=== PATIENT | male | born 1955 | race Caucasian/White ===

== ENCOUNTER 2017-04-02 09:41 | Inpatient (IN) ==
[2017-04-02] MEDS ORDERED: VANCOMYCIN - PHARMACY CONSULT MC ONE (09:49)
--- NOTE | 2017-04-02 09:51 | Emergency Department Report ---
Abdominal Pain HPI - General Chief Complaint: Medical Emergency Stated Complaint: ecoli in blood Time Seen by Provider: 04/02/17 09:47 Source: patient, old records reviewed, other (Dr. Arce) Mode of arrival: ambulatory Limitations: no limitations - History of Present Illness HPI narrative: 61yo man presents to the ER for evaluation and admission. Pt was evaluated yesterday for fever and LLQ pain. Pt has a known h/o diverticulitis. Overnight, 3/4 blood culx returned gram pos rods. The on-call physician spoke with the hospitalist about admission. Hospitalist directed pt to the ER for admission. MD complaint: abdominal pain Onset (ago): hour(s) Consistency: constant Location: LLQ Severity: moderate Severity scale (1-10): 5 Quality: cramping, stabbing Migration to: no migration Relieving factors: nothing Exacerbating factors: eating, movement, other (palpation) Context: history of similar episodes Associated symptoms: diarrhea, fever, chills Treatments prior to arrival: NSAIDs - Related Data Home Medications Medication Instructions Recorded Confirmed Simvastatin [Zocor] 20 mg PO DAILY #0 04/03/11 04/02/17 Tamsulosin HCl [Flomax] 0.4 mg PO DAILY #0 11/10/12 04/02/17 Finasteride [Proscar] 5 mg PO DAILY 04/02/17 04/02/17 Fluticasone Nasal Davison [Flonase] 1 spray EA NOSTRIL DAILY PRN 04/02/17 04/02/17 Hydrocodone/APAP 7.5/325 [Corry 1 tab PO QID PRN 04/02/17 04/02/17 7.5/325] Methocarbamol [Robaxin] 500 mg PO BID PRN 04/02/17 04/02/17 dilTIAZem HCl [Diltiazem 24Hr Cd] 120 mg PO DAILY 04/02/17 04/02/17 Allergies Allergy/AdvReac Type Severity Reaction Status Date / Time cefaclor Allergy Unknown ANAPHYLACTIC Verified 04/02/17 09:46 SHOCK Penicillins Allergy Unknown RASH Verified 04/02/17 09:46 polyethylene glycol 3350 Allergy Unknown Verified 04/02/17 09:53 [From Miralax] Review of Systems All systems: reviewed and negative except as stated Constitutional: Reports: as per HPI, fever, chills Gastrointestinal: Reports: as per HPI, abdominal pain PFSH Medical History Updates: diverticulitis Physical Exam - Limitations Limitations: no limitations - General General appearance: alert, in no apparent distress - Normal Exams: Head:: Normocephalic without trauma Eyes:: Pupils are PERRLA w/ EOMI, No scleral icterus, irritation, or foreign bodies noted ENMT:: No facial trauma, nasal exudates, pharyngeal erythema, or exudates are noted Neck:: Full range of motion, without adenopathy Chest/Respirations:: Clear all rausch, with good airflow, and symmetry bilaterally Cardiovascular:: Regular rate and rhythm, without murmur or gallop, Pulses 2+ all extremities, capillary refill, <2 seconds all extremities Lymphatic:: No lymphadenopathy Musculoskeletal:: No tenderness, or deformity noted Integumentary:: No rashes, hives, or bruising noted Neurological:: Patient is alert, and oriented Psychiatric:: Patient exhibits, appropriate attention - Abdominal Exam Abdominal exam: Present: soft, tenderness, rebound, normal bowel sounds, Rovsing 's sign. Absent: distention, guarding, rigidity, psoas sign, obturator sign, heel tap sign, Najera's sign, tenderness at McBurney's Point, hernia Abdominal tenderness: Present: LLQ Course - Consultations Consultation #1: Hospitalist: Deferred direct admission to eval in the ER based on pts not having been seen/evaluated today. Will admit for treatment of diverticulitis/ bacteremia. Time: 10:55 Vital Signs Temperature 97.8 F 04/02/17 09:46 Pulse Rate 98 04/02/17 09:46 Respiratory Rate 19 04/02/17 09:46 Blood Pressure 86/53 04/02/17 09:46 Pulse Oximetry 99 04/02/17 09:46 Temperature 97.8 F 04/02/17 09:46 Pulse Rate 98 04/02/17 09:46 Respiratory Rate 19 04/02/17 09:46 Blood Pressure 86/53 04/02/17 09:46 Pulse Oximetry 99 04/02/17 09:46 Abdominal Pain - MDM Narrative Medical decision making narrative: 61yo man with presumptive recurrence of diverticulitis and bacteremia. Initial treatment started for pts bacteremia. Will contact hospitalist for admission. - Differential Diagnosis Differential diagnosis: Likely: abdominal pain, acute appendicitis, constipation , diverticulitis, gastroenteritis, small bowel obstruction - Medical Records Attestation: I reviewed the patient's medical records. - Lab Data Attestation: I reviewed the patient's lab results. Result diagrams: 04/02/17 10:02 04/02/17 10:02 - Radiology Data Attestation: I reviewed the patient's radiology results. CXR: Findings: The lungs are stable in appearance without new focal airspace consolidation. There is no pleural effusion or pneumothorax. The heart size, pulmonary vascularity and mediastinal contours are unchanged. New thoracic epidural spinal stimulator lead. Old deformity of the right distal clavicle. Degenerative change in the AC joints and spine. IMPRESSION: Stable appearance of the chest without acute cardiopulmonary disease. CT Abd/pelv: Findings: The lung bases are clear. The liver is stable without enhancing mass or bile duct dilatation. The gallbladder is unremarkable. The spleen, pancreas and adrenal glands are within normal limits. Kidneys appear stable. No hydronephrosis. No abdominal or pelvic lymphadenopathy. Bladder is grossly normal. Prostate and rectum are normal. No free fluid. There is new inflammation in the distal descending colon. No extraluminal gas or rim-enhancing abscess appreciated. No evidence of a bowel obstruction. The appendix is normal. Bone windows show no acute findings. Impression: Distal descending colonic diverticulitis. No evidence of perforation or abscess at this time. - EKG Data EKG #1 EKG attestation: Yes: I reviewed and interpreted this EKG. EKG shows normal: sinus rhythm, axis, intervals, QRS complexes, ST-T waves Rate: normal Disposition Clinical Impression: Bacteremia Diverticulitis Qualifiers: Diverticulitis site: large intestine Diverticulitis bleeding: unspecified bleeding status Diverticulitis complication: unspecified complication status Qualified Code(s): K57.32 - Diverticulitis of large intestine without perforation or abscess without bleeding Disposition: 02 To [facility] [place] Care Print Language: Indonesian Prescriptions: No Action Simvastatin [Zocor] 20 mg PO DAILY #0 dilTIAZem HCl [Diltiazem 24Hr Cd] 120 mg PO DAILY Finasteride [Proscar] 5 mg PO DAILY Tamsulosin HCl [Flomax] 0.4 mg PO DAILY #0 Fluticasone Nasal Davison [Flonase] 1 spray EA NOSTRIL DAILY PRN PRN Reason: Prn Orders Hydrocodone/APAP 7.5/325 [Corry 7.5/325] 1 tab PO QID PRN PRN Reason: Pain Methocarbamol [Robaxin] 500 mg PO BID PRN PRN Reason: Prn Orders Referrals: Paxton Dykes MD [Family Provider] - Time of Disposition: 11:19 - Seen By: physician
[2017-04-02] MEDS: LR 1,000 ML IV SCH ×4 (10:10→13:02)
[2017-04-02] MEDS: SALINE FLUSH 10ml SYRINGE IVF PRN ×2 (10:10→13:05)
[2017-04-02] MEDS ORDERED: IOHEXOL 300mg/ml 100ml INJECTION ONE (10:35)
[2017-04-02] MEDS ORDERED: SALINE FLUSH 10ml SYRINGE ONE (10:36)
[2017-04-02] MEDS ORDERED: NS 100 ML ONE (10:36)
--- NOTE | 2017-04-02 11:01 | XRay Report ---
Indication: Sepsis PROCEDURE: XR chest 1V: Encounter: Initial Comparison: January 15, 2016 Findings: The lungs are stable in appearance without new focal airspace consolidation. There is no pleural effusion or pneumothorax. The heart size, pulmonary vascularity and mediastinal contours are unchanged. New thoracic epidural spinal stimulator lead. Old deformity of the right distal clavicle. Degenerative change in the AC joints and spine. IMPRESSION: Stable appearance of the chest without acute cardiopulmonary disease. .
--- NOTE | 2017-04-02 11:06 | CT Scan Report ---
Indication: Abd pain; bacteremia; h/o diverticulitis PROCEDURE: CT abdomen pelvis w con: Encounter: Initial Comparison: CT abdomen dated January 07, 2017 Technique: Axial CT images were performed through the abdomen and pelvis after the administration of intravenous contrast. Coronal and sagittal two-dimensional reformats. Automated Exposure Control and Iterative Reconstruction dose reducing techniques were utilized. Contrast: Omnipaque 300 100 mL Findings: The lung bases are clear. The liver is stable without enhancing mass or bile duct dilatation. The gallbladder is unremarkable. The spleen, pancreas and adrenal glands are within normal limits. Kidneys appear stable. No hydronephrosis. No abdominal or pelvic lymphadenopathy. Bladder is grossly normal. Prostate and rectum are normal. No free fluid. There is new inflammation in the distal descending colon. No extraluminal gas or rim-enhancing abscess appreciated. No evidence of a bowel obstruction. The appendix is normal. Bone windows show no acute findings. Impression: Distal descending colonic diverticulitis. No evidence of perforation or abscess at this time. .
[2017-04-02] MEDS ORDERED: NS 1,000 ML IV ONE (11:14)
[2017-04-02 12:09] VITALS: BMI 25.9
[2017-04-02] MEDS ORDERED: INFLUENZA VAC QIV 2017-18 (Fluarix*)(>=3yo) 0.5ml IM ONE (12:17)
[2017-04-02] MEDS ORDERED: INFLUENZA VAC. INJ. ADMIN CHARGE INJ ONE (12:26)
[2017-04-02] MEDS ORDERED: NS 1,000 ML IV SCH (13:00)
[2017-04-02] MEDS: NS with KCL 20 mEq 1,000 ML IV SCH ×2 (13:04→22:46)
--- NOTE | 2017-04-02 13:25 | Pharmacy Consult-Antibiotics ---
Pharmacy Consult-Vancomycin - Laboratory Information WBC 8.2 T/MM3 (4.5-11.0) 04/02/17 10:02 BUN 16.0 MG/DL (9-20) 04/02/17 10:02 Creatinine 1.0 MG/DL (0.8-1.5) D 04/02/17 10:02 MONTEZ is a 61yo man, who presents to the ER for evaluation and admission. Pt was evaluated yesterday for fever and LLQ pain. Pt has a known h/o diverticulitis. Overnight, 3/4 blood cultures returned with gram pos rods. He was admitted with presumptive recurrence of diverticulitis and bacteremia. Initial treatment started for pts bacteremia in ED with Vancomycin. . S Cr = 1.0 mg/cL Cr Cl = 79 mL/min Temp = 97.7 degrees F WBC's = 8.2 T/mm3 Lactate = 1.2 The patient was given Vancomycin 2,000 mg @ 1015 in the ED. Based on information from the Vancomycin Pharmacokinetic Program I will continue the Vancomycin @ 1,250 mg iv every 12 hours starting at 2200 this evening. The estimated trough should be around 16.4 mcg/mL. The pharmacy will continue monitor the vancomycin and adjust accordingly. Thanks for the protocol, Tate Palomares, Pharmacist
--- NOTE | 2017-04-02 13:47 | History & Physical Report ---
<Elisha Cummins - Last Filed: 04/02/17 13:37> History of Present Illness Date: 04/02/17 Chief complaint: LLQ abdominal pain HPI: Kaden Portillo (Mike) is a very pleasant 61-year-old male who presented to [facility] emergency department at the suggestion of his PCP, Dr. Dykes, for evaluation of left lower quadrant abdominal pain. His , Mila, is present on exam and contributes to the history. He reports that on 03/29/17, he started to have lower back pain which he states was initially similar to is chronic back pain. On Thursday, 04/01, he started to have chills in addition to his back pain which had moved to his left lower quadrant. He was unable to get an appointment with his PCP, Dr. Dykes, but was able to be seen by Dr. Blackwell in the clinic. He was noted to be febrile in clinic with a temperature of 100.8. Exam revealed severe left lower quadrant pain with palpation, suspicious for diverticulitis. He admits to a history of diverticular disease with an episode of diverticulitis in 2012 which presented with similar symptoms. While in the clinic, labs and blood cultures were obtained and revealed WBC 9.3 with 92% neutrophils and 2% bands. He was also noted to have hypokalemia with potassium of 3.2 and UA was unremarkable. Treatment with Levaquin and KCl were initiated and he was discharged home. This morning, the hospitalist service was contacted regarding positive blood cultures on Mr. Portillo , revealing E. coli. Mr. Portillo was then contacted and directed to the emergency room for further evaluation and admission. Upon arrival to the ED, he was hypotensive with a blood pressure of 86/53 and tachycardic with heart rate of 98. Labs were obtained and revealed WBC of 8.2 with 85% neutrophils and 5% bands. BMP was unremarkable with resolution of previous hypokalemia noted in clinic on 04/01. CT abdomen/pelvis with contrast was obtained and revealed distal descending colonic diverticulitis without evidence of perforation or abscess. CXR was also obtained and showed stable appearance of chest without acute cardiopulmonary disease. Additional blood cultures were obtained in the ED. Mr. Portillo admits to taking his levaquin this morning around 0700 in addition to his home medications. While in the ED, he received vancomycin for additional antimicrobial coverage as well as 1 liter of normal saline and 1 liter of lactated ringers. His hypotension improved with the fluid resuscitation. In light of his acute diverticulitis with bacteremia and sepsis as indicated by his tachycardia and hypotension with MAP of 64, Dr. Rangel was contacted and he was admitted into inpatient status for further evaluation, close monitoring for deterioration, IV hydration and IV antibiotics. His length of stay is expected to exceed 2 over nights. On exam, he is seen while resting in bed, on his right side, with his at the bedside. He denies any chest pain, shortness of breath, nausea, vomiting or dysuria. He admits to recent chills and fever as well as constipation. He recently started doing the keto-diet as he was concerned about being prediabetic with his recent A1c at 6.1. Since changing his diet, he has become more constipated as he does not eat much fiber, fruits or vegetables. His last bowel movement was on 03/30. He denies any blood in his stools and no dark, tarry stools. Review of Systems All systems PM: 10-point ROS was reviewed, no additional remarkable complaints except - Constitutional Constitutional: Present: chills, fever(s) - EENMT Eyes: Absent: blurry vision, change in vision, photophobia Balance: Absent: falling to one side Nose: Absent: nosebleeds Mouth/Throat: Present: dry mouth. Absent: sore throat, changes in swallowing - Cardiovascular Cardiovascular: Absent: chest pain, palpitations, syncope, dyspnea on exertion, orthopnea, edema Vascular: Absent: pedal edema - Respiratory Respiratory: Absent: cough, dyspnea, hemoptysis, dyspnea on exertion, wheezing - Gastrointestinal Gastrointestinal: Present: abdominal pain (LLQ), change in bowel habits, constipation. Absent: hematochezia, melena, nausea, vomiting - Genitourinary Genitourinary: Absent: dysuria, hematuria - Musculoskeletal Musculoskeletal: Present: as per HPI, back pain. Absent: deformity - Integumentary/Breasts Integumentary: Absent: rash, jaundice - Neurological Neurological: Absent: confusion, dizziness - Psychiatric Psychiatric: Absent: anxiety, depression - Endocrine Endocrine: Absent: palpitations - Hematologic/Lymphatic Hematologic/Lymphatic: Absent: easy bruising - Allergic/Immunologic Allergic/Immunologic: Present: seasonal rhinorrhea [facility] Patient Stated Medical History GERD. Diverticulosis with history of diverticulitis-2014, 2012. Hypertension. Hypercholesterolemia. Chronic back pain. BPH. Osteoarthritis. 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 Remote history of asthma. Seasonal rhinitis. Surgical History: Back stimulator placement-2015. EGD-2015. Colonscopy-2012. Fexible sigmoidoscopy-2012. Umbilical hernia repair-2010. Sinus surgery-2010. [place] laminectomy-2007. Uvulectomy-2005. Tonsillectomy-2005. Left spermatocele-2003. Right knee arthroplasty-1998. Left carpal tunnel release. Family History: Mother- age 82, breast cancer, CAD, hyperlipidemia, hypertension, arrhythmia. Father- age 78, COPD, sepsis secondary to rectal fistula. 2 sisters and a brother, all living and reportedly healthy. 3 living sons, all alive and reportedly healthy. 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 Dykes. Currently lives with his , Mila, whom he has been to for 37 years. Medications Home Medications Medication Instructions Recorded Confirmed Type Simvastatin [Zocor] 20 mg PO DAILY #0 04/03/11 04/02/17 History Tamsulosin HCl [Flomax] 0.4 mg PO DAILY #0 11/10/12 04/02/17 History Finasteride [Proscar] 5 mg PO DAILY 04/02/17 04/02/17 History Fluticasone Nasal Maribel [Flonase] 1 spray EA NOSTRIL DAILY PRN 04/02/17 History Hydrocodone/APAP 7.5/325 [[place] 1 tab PO QID PRN 04/02/17 04/02/17 History 7.5/325] Methocarbamol [Robaxin] 500 mg PO BID PRN 04/02/17 04/02/17 History dilTIAZem HCl [Diltiazem 24Hr Cd] 120 mg PO DAILY 04/02/17 04/02/17 History levoFLOXacin [Levaquin] 500 mg PO ACB 04/02/17 04/02/17 History Allergies Allergy/AdvReac Type Severity Reaction Status Date / Time cefaclor Allergy Unknown ANAPHYLACTIC Verified 04/02/17 09:46 SHOCK Penicillins Allergy Unknown RASH Verified 04/02/17 09:46 polyethylene glycol 3350 Allergy Unknown Verified 04/02/17 09:53 [From Miralax] Exam Vital Signs: Temperature 97.8 F 04/02/17 11:52 Pulse Rate 66 04/02/17 11:52 Respiratory Rate 16 04/02/17 11:52 Blood Pressure 110/67 04/02/17 11:52 Pulse Oximetry 100 04/02/17 11:52 Telemetry Rhythm: Sinus Rhythm Height/Weight/BMI: Height 5 ft 9 in Weight 175 lb 7.807 oz Body Mass Index 25.9 - Constitutional Present: no acute distress, well nourished, well developed, cooperative - Routine HEENT Exam Head: Present: normocephalic, atraumatic Eye: Present: PERRL. Absent: conjunctival icterus ENT: Present: mucous membranes moist, dentition normal - Routine Neck Exam Present: supple, full ROM, trachea midline - Routine Chest/Breast/Axilla Exam Chest wall: Absent: pacemaker - Routine Respiratory Exam Present: CTA bilaterally. Absent: stridor, wheezes, crackles - Routine Cardiovascular Exam Present: RRR, S1, S2 - Routine Abdominal Exam Present: soft, tenderness (LLQ), distended, guarding (voluntary-LLQ.) - Routine Extremities Exam Present: no edema, full ROM, pulses intact - Routine Back/Spine/Pelvis Exam Back/Spine: Present: full ROM - Routine Skin Exam Present: intact, dry, warm Comments: afebrile. - Routine Neurological Exam Present: alert, oriented X3, moving all extremities, hearing grossly intact, normal speech - Routine Psychiatric Exam Present: normal affect, cooperative, good insight, good judgment Results - Labs CBC & Chem 7: 04/02/17 10:02 04/02/17 10:02 Microbiology Results: Preliminary blood culture obtained 04/01/17 - positive for E. Coli. - Imaging and Cardiology CT scan - abdomen Status: image reviewed by me Additional comments: Date of Exam: 04/02/17 Type of Exam(s): CT abdomen pelvis w con Findings: The lung bases are clear. The liver is stable without enhancing mass or bile duct dilatation. The gallbladder is unremarkable. The spleen, pancreas and adrenal glands are within normal limits. Kidneys appear stable. No hydronephrosis. No abdominal or pelvic lymphadenopathy. Bladder is grossly normal. Prostate and rectum are normal. No free fluid. There is new inflammation in the distal descending colon. No extraluminal gas or rim-enhancing abscess appreciated. No evidence of a bowel obstruction. The appendix is normal. Bone windows show no acute findings. Impression: Distal descending colonic diverticulitis. No evidence of perforation or abscess at this time. Chest x-ray Status: image reviewed by me Additional comments: Date of Exam: 04/02/17 Findings: The lungs are stable in appearance without new focal airspace consolidation. There is no pleural effusion or pneumothorax. The heart size, pulmonary vascularity and mediastinal contours are unchanged. New thoracic epidural spinal stimulator lead. Old deformity of the right distal clavicle. Degenerative change in the AC joints and spine. IMPRESSION: Stable appearance of the chest without acute cardiopulmonary disease. Assessment and Plan (1) Bacteremia Current visit: Yes Status: Acute Blood culture obtained on 04/01/17 was positive for E. coli. (2) Diverticulitis Current visit: Yes Status: Acute (3) Sepsis Current visit: Yes Status: Acute present on admission, secondary to diverticulitis, as indicated by tachycardia ( HR 98) and hypotension (BP 86/53) with MAP of 64. DVT Prophylaxis: SCD's Resuscitation Status: Full Code Assessment and Plan: 61-year-old male with 4 day history of lower back and LLQ abdominal pain with fevers and chills presented to ED on 04/02/17 and found to have diverticulitis per CT abdomen/pelvis. Seen by Dr. Blackwell in clinic on 04/01 and started on Levaquin for suspected diverticulitis and found to have positive blood culture for E.coli at that time. Assessment Sepsis and bacteria secondary to diverticulitis, acute. Hypertension, chronic. Hypercholesterolemia, chronic. Chronic back pain. GERD, chronic. Diverticulosis with history of diverticulitis-2014, 2012. BPH, chronic. 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 Seasonal rhinitis, chronic. Plan-04/02/17 (Admission) Admit to inpatient status under the care of Dr. Rangel. Patient was started on Levaquin as outpatient on 04/01/17 for suspected diverticulitis. Will continue Levaquin 750mg IV daily for antimicrobial coverage of suspected GI pathogens. Patient was given Vancomycin x 1 dose in ED for additional empiric coverage, which will not be continued at this time. Additional blood cultures were obtained in ED-awaiting results. Initial blood culture from 04/01 obtained in clinic revealed E. coli. Patient has a history of diverticulitis in 2012 and 2014. May consider surgical consult for further evaluation. Patient has a history of hypertension and was found to be hypotensive in ED with blood pressure 86/53. Improvement with fluid resuscitation. Continue to monitor blood pressure closely. Continue home diltiazem in AM with parameters. Monitor cardiac function closely on telemetry. Continue NS with KCl at 125cc/ hr for hydration and potassium supplementation given recent hypokalemia noted in PCP office (K 3.2 on 04/01/17). Will monitor electrolytes and renal function with repeat BMP in AM. Will recheck CBC in AM to monitor blood counts. lactate on admission was 1.2. Will recheck at 1800. If elevated, recommend recheck in AM. Continue home [place] and Robaxin for chronic back pain. Will provide Morphine as needed for additional pain control as well as Zofran for nausea/vomiting. Full liquid diet as tolerated. Bowel motivation with Senna plus. Prior medical records, nursing notes and home medications were reviewed. Tylenol as needed for pain and fever. Treatment plan discussed with Dr. Rangel and nursing. - Time spent with patient Time with patient PN: 70 minutes Sepsis Assessment - Evaluation Possible source: GI tract/intra-abdominal Confirmed Suspected Infection: Yes SIRS Criteria: pulse > or equal to 90 beats/minute Severe Sepsis: MAP <65 Hospital Course Summary Disclaimer: The visit summary below is not to be considered part of the above Progress Note. Hospital Course: 04/02/17 14:43 Assessment Sepsis and bacteria secondary to diverticulitis, acute. Hypertension, chronic. Hypercholesterolemia, chronic. Chronic back pain. GERD, chronic. Diverticulosis with history of diverticulitis-2012. BPH, chronic. 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 Seasonal rhinitis, chronic. Plan-04/02/17 (Admission) Admit to inpatient status under the care of Dr. Rangle. Patient was started on Levaquin as outpatient on 04/01/17 for suspected diverticulitis. Will continue Levaquin 750mg IV daily for antimicrobial coverage of suspected GI pathogens. Patient was given Vancomycin x 1 dose in ED for additional empiric coverage, which will not be continued at this time. Additional blood cultures were obtained in ED-awaiting results. Initial blood culture from 04/01 obtained in clinic revealed E. coli. Patient has a history of diverticulitis in 2012 and 2014. May consider surgical consult for further evaluation. Patient has a history of hypertension and was found to be hypotensive in ED with blood pressure 86/53. Improvement with fluid resuscitation. Continue to monitor blood pressure closely. Continue home diltiazem in AM with parameters. Monitor cardiac function closely on telemetry. Continue NS with KCl at 125cc/ hr for hydration and potassium supplementation given recent hypokalemia noted in PCP office (K 3.2 on 04/01/17). Will monitor electrolytes and renal function with repeat BMP in AM. Will recheck CBC in AM to monitor blood counts. lactate on admission was 1.2. Will recheck at 1800. If elevated, recommend recheck in AM. Continue home [place] and Robaxin for chronic back pain. Will provide Morphine as needed for additional pain control as well as Zofran for nausea/vomiting. Full liquid diet as tolerated. Bowel motivation with Senna plus. Prior medical records, nursing notes and home medications were reviewed. Tylenol as needed for pain and fever. Treatment plan discussed with Dr. Rangel and nursing. <Lacy Rangel - Last Filed: 04/02/17 17:06> History of Present Illness Date: 04/02/17 [facility] Patient Stated Medical History Other HEENT Yes: wears glasses Hypertension Yes Other GI Yes: diverticulitis Hx Benign Prostatic Yes Hyperplasia MRSA Yes: FROM SINUS SURGERY 2009 Exam Vital Signs: Temperature 97.8 F 04/02/17 11:52 Pulse Rate 66 04/02/17 11:52 Respiratory Rate 16 04/02/17 11:52 Blood Pressure 110/67 04/02/17 11:52 Pulse Oximetry 100 04/02/17 11:52 Height/Weight/BMI: Height 1.75 m Weight 79.6 kg Body Mass Index 25.9 Results - Labs CBC & Chem 7: 04/02/17 10:02 04/02/17 10:02 Assessment and Plan (1) Bacteremia Current visit: Yes Status: Acute (2) Diverticulitis Current visit: Yes Status: Acute (3) Sepsis Current visit: Yes Status: Acute Assessment and Plan: 04/02/2017-I reviewed this chart, the patient history, and the [facility] LPN's/PA's documented findings as above. We discussed and formulated the assessment and plan as above with the additions below.-Dr. Rangel The patient states that he starting to feel better. He continues to have left lower quadrant abdominal pain, but states that is improving. He states that his symptoms started 5 days ago initially with low back pain and "just not feeling well". He denies any chest pain, shortness of breath or cough. Appetite is decreased. He states that he started on a new diet and has been constipated off and on since that time, occasionally requiring manual disimpaction including last week. He states that he has lost 20 pounds and stopped taking his diltiazem. He states he did monitor his blood pressure and it was usually in the 120s over 70s. He states yesterday when he didn't feel well he thought it might be because of high blood pressure and so he restarted his diltiazem yesterday after being off of it for several weeks. Last night and this morning the patient states he was feeling lightheaded and weak as well as having feverishness and abdominal pain. He states after receiving IV fluids he no longer feels lightheaded. He does request something to eat and drink and states he is hungry. On exam he is alert and oriented and in no acute distress. Chest is clear to auscultation. Cardiac vascular reveals a regular rate and rhythm. Abdomen is soft and mildly tender throughout but more so in the left lower quadrant. Bowel sounds are present. He states he is passing some flatus. Extremities are free of edema. Skin is warm and dry and without rashes. Back exam reveals a nerve stimulator in the left low back. There is no surrounding erythema or edema but the patient states it is a little tender to palpation. I did review the CT and agree with radiology report showing distal descending colonic diverticulitis. No evidence of perforation or abscess at this time. Impression and plan Regarding diverticulitis with Escherichia coli bacteremia, agree with IV Levaquin. He did take oral Levaquin this morning. Blood cultures were repeated today and will await results. Regarding hypotension and sepsis, continue IV fluids. Regarding history of hypertension, the patient states he stops taking his diltiazem several weeks ago and only restarted taking it yesterday. He states he quit taking it when he lost 20 pounds. We'll monitor off of diltiazem at this time. Tender Nerve stimulator in back-monitor Repeat lab tomorrow Regarding constipation, recommend treatment and avoidance of constipation to help with his diverticulosis. Hospital Course Summary Disclaimer: The visit summary below is not to be considered part of the above Progress Note.
[2017-04-02] MEDS ORDERED: FLUTICASONE NASAL SPRAY 50mcg EA NOSTRIL PRN (14:25)
[2017-04-02] MEDS ORDERED: METHOCARBAMOL 500 MG TABLET PO PRN (14:25)
[2017-04-02] MEDS ORDERED: MORPHINE SULFATE 2mg INJECTION IVP PRN (14:39)
[2017-04-02] MEDS ORDERED: ONDANSETRON 4 MG/2 ML INJECTION IVP PRN (14:40)
[2017-04-02] MEDS ORDERED: LEVOFLOXACIN PB 750 MG/150 ML BAG IV SCH (14:45)
[2017-04-02] MEDS: ACETAMINOPHEN 500 MG TABLET PO PRN (18:12)
[2017-04-02] MEDS: HYDROCODONE/APAP 7.5 MG/325 MG TABLET PO PRN (19:08)
[2017-04-02] MEDS: NS 1,000 ML IV SCH ×2 (20:36→23:03)
[2017-04-02] MEDS: SENNA + DOCUSATE TABLET PO SCH (22:26)
[2017-04-02] MEDS: SIMVASTATIN 20 MG TABLET PO SCH (22:26)
[2017-04-03] MEDS: LEVOFLOXACIN PB 750 MG/150 ML BAG IV SCH ×2 (00:12→23:17)
[2017-04-03] MEDS: ACETAMINOPHEN 500 MG TABLET PO PRN (04:44)
[2017-04-03] MEDS ORDERED: LEVOFLOXACIN PB 750 MG/150 ML BAG IV SCH (08:00)
[2017-04-03] MEDS: NS with KCL 20 mEq 1,000 ML IV SCH (08:15)
[2017-04-03] MEDS: SENNA + DOCUSATE TABLET PO SCH ×2 (08:19→20:45)
[2017-04-03] MEDS: FINASTERIDE 5 MG TABLET PO SCH (08:19)
[2017-04-03] MEDS: TAMSULOSIN 0.4 MG CAPSULE PO SCH (08:19)
--- NOTE | 2017-04-03 09:01 | Progress Note ---
Subjective: The events of last night were reviewed. The patient was transferred to intensive care because of hypotension. After transfer, blood pressure improved without a change in treatment plan. The patient states he is feeling a lot better today. He states he no longer has a headache. His abdominal pain is better. His feverishness is improved. He is not as lightheaded. He did urinate a lot yesterday but not as much today. He does have a nonproductive cough. He denies chest pain. He denies any rhinorrhea , sore throat or other symptoms of an upper respiratory infection. He had a diarrheal stool last night. He is tolerating a full liquid diet without difficulties. He states he was off of his blood pressure medicine for 2 months after losing weight on a diet plan. He restarted his blood pressure medicine yesterday morning because he was not feeling well. Objective Vital signs: Temperature 98.6 F 04/03/17 06:00 Pulse Rate 68 04/03/17 08:00 Respiratory Rate 17 04/03/17 07:00 Blood Pressure 91/53 04/03/17 07:00 Pulse Oximetry 94 04/03/17 07:00 Height/Weight/BMI: Height 1.75 m Weight 79.4 kg Body Mass Index 25.9 Comments: I&O is 6 L/1.8 L GEN-alert, oriented, no acute distress HEENT-sclera anicteric, oropharynx is moist NECK-supple CV-regular rate and rhythm CHEST-clear to auscultation bilaterally ABD-soft, tender in the left lower quadrant, but not as bad as yesterday. Bowel sounds are hypoactive. No distention -no [place] EXT-no edema, SCDs are on NEURO-no focal deficits SKIN-warm and dry and without rashes On back exam, nerve stimulator is not tender today. Results - Labs CBC & Chem 7: 04/03/17 04:48 04/03/17 04:48 Labs: Bands are 1 down from 5. Neutrophils are 80% down from 85%. Assessment and Plan (1) Bacteremia Current visit: Yes Status: Acute Blood culture obtained on 04/01/17 was positive for E. coli. (2) Diverticulitis Current visit: Yes Status: Acute (3) Sepsis Current visit: Yes Status: Acute present on admission, secondary to diverticulitis, as indicated by tachycardia ( HR 98) and hypotension (BP 86/53) with MAP of 64. Assessment and Plan: 04/03/2017 Assessment Severe sepsis with hypotension, fever and Escherichia coli bacteremia. Lactate was normal 3 Bacteremia with Escherichia coli Diverticulitis Cough-started yesterday, no URI symptoms, possibly secondary to early pulmonary edema. Lungs are clear on exam. Hypertension history-the patient lost weight and had been off of blood pressure medication with normal blood pressure for the past 2 months Hypercholesterolemia, chronic. Chronic back pain with implanted nerve stimulator in the left back. Tender on the day of admission but improved on 04/03/2017 GERD, chronic. Diverticulosis with history of diverticulitis-2012. BPH, chronic. 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 Seasonal rhinitis, chronic. Plan Re: Escherichia coli bacteremia and diverticulitis, continue on IV Levaquin. We'll discontinue IV fluids, check orthostatics, monitor blood pressure closely , possible transfer to the floor later today. Regarding cough, we'll see if this improves off of IV fluids. If cough is not improving we'll check a chest x-ray. Regarding constipation, continue Senokot twice a day Increase activity-ambulate in the halls with assist as tolerated Advance diet as tolerated Lovenox and SCDs for DVT prophylaxis Hospital Course Summary Disclaimer: The visit summary below is not to be considered part of the above Progress Note. Hospital Course: 04/02/17 14:43 Assessment Sepsis and bacteria secondary to diverticulitis, acute. Hypertension, chronic. Hypercholesterolemia, chronic. Chronic back pain. GERD, chronic. Diverticulosis with history of diverticulitis-2012. BPH, chronic. 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 Seasonal rhinitis, chronic. Plan-04/02/17 (Admission) Admit to inpatient status under the care of Dr. Rangel. Patient was started on Levaquin as outpatient on 04/01/17 for suspected diverticulitis. Will continue Levaquin 750mg IV daily for antimicrobial coverage of suspected GI pathogens. Patient was given Vancomycin x 1 dose in ED for additional empiric coverage, which will not be continued at this time. Additional blood cultures were obtained in ED-awaiting results. Initial blood culture from 04/01 obtained in clinic revealed E. coli. Patient has a history of diverticulitis in 2012 and 2014. May consider surgical consult for further evaluation. Patient has a history of hypertension and was found to be hypotensive in ED with blood pressure 86/53. Improvement with fluid resuscitation. Continue to monitor blood pressure closely. Continue home diltiazem in AM with parameters. Monitor cardiac function closely on telemetry. Continue NS with KCl at 125cc/ hr for hydration and potassium supplementation given recent hypokalemia noted in PCP office (K 3.2 on 04/01/17). Will monitor electrolytes and renal function with repeat BMP in AM. Will recheck CBC in AM to monitor blood counts. lactate on admission was 1.2. Will recheck at 1800. If elevated, recommend recheck in AM. Continue home [place] and Robaxin for chronic back pain. Will provide Morphine as needed for additional pain control as well as Zofran for nausea/vomiting. Full liquid diet as tolerated. Bowel motivation with Senna plus. Prior medical records, nursing notes and home medications were reviewed. Tylenol as needed for pain and fever. Treatment plan discussed with Dr. Rangel and nursing. 04/02/2017-I reviewed this chart, the patient history, and the [employer]'s/PA's documented findings as above. We discussed and formulated the assessment and plan as above with the additions below.-Dr. Rangel The patient states that he starting to feel better. He continues to have left lower quadrant abdominal pain, but states that is improving. He states that his symptoms started 5 days ago initially with low back pain and "just not feeling well". He denies any chest pain, shortness of breath or cough. Appetite is decreased. He states that he started on a new diet and has been constipated off and on since that time, occasionally requiring manual disimpaction including last week. He states that he has lost 20 pounds and stopped taking his diltiazem. He states he did monitor his blood pressure and it was usually in the 120s over 70s. He states yesterday when he didn't feel well he thought it might be because of high blood pressure and so he restarted his diltiazem yesterday after being off of it for several weeks. Last night and this morning the patient states he was feeling lightheaded and weak as well as having feverishness and abdominal pain. He states after receiving IV fluids he no longer feels lightheaded. He does request something to eat and drink and states he is hungry. On exam he is alert and oriented and in no acute distress. Chest is clear to auscultation. Cardiac vascular reveals a regular rate and rhythm. Abdomen is soft and mildly tender throughout but more so in the left lower quadrant. Bowel sounds are present. He states he is passing some flatus. Extremities are free of edema. Skin is warm and dry and without rashes. Back exam reveals a nerve stimulator in the left low back. There is no surrounding erythema or edema but the patient states it is a little tender to palpation. I did review the CT and agree with radiology report showing distal descending colonic diverticulitis. No evidence of perforation or abscess at this time. Impression and plan Regarding diverticulitis with Escherichia coli bacteremia, agree with IV Levaquin. He did take oral Levaquin this morning. Blood cultures were repeated today and will await results. Regarding hypotension and sepsis, continue IV fluids. Regarding history of hypertension, the patient states he stops taking his diltiazem several weeks ago and only restarted taking it yesterday. He states he quit taking it when he lost 20 pounds. We'll monitor off of diltiazem at this time. Tender Nerve stimulator in back-monitor Repeat lab tomorrow Regarding constipation, recommend treatment and avoidance of constipation to help with his diverticulosis.
[2017-04-03] MEDS: ENOXAPARIN 40 MG/0.4 ML INJECTION SQ SCH (09:41)
[2017-04-03] MEDS: HYDROCODONE/APAP 7.5 MG/325 MG TABLET PO PRN (17:07)
[2017-04-03] MEDS: SIMVASTATIN 20 MG TABLET PO SCH (20:45)
[2017-04-04 04:24] VITALS: RESP 18
[2017-04-04] MEDS: SALINE FLUSH 10ml SYRINGE IVF PRN (06:03)
[2017-04-04 07:48] VITALS: TEMP 97.9
[2017-04-04 07:54] VITALS: BP 133/87; PULSE 71; O2SAT 94
[2017-04-04] MEDS: ENOXAPARIN 40 MG/0.4 ML INJECTION SQ SCH (08:58)
[2017-04-04] MEDS: TAMSULOSIN 0.4 MG CAPSULE PO SCH (08:58)
[2017-04-04] MEDS: FINASTERIDE 5 MG TABLET PO SCH (08:58)
[2017-04-04] MEDS: SENNA + DOCUSATE TABLET PO SCH (08:58)
--- NOTE | 2017-04-04 14:18 | Progress Note ---
Subjective: 61-year-old male who presented to [facility] [place] department at the suggestion of his PCP, Dr. Dykes, for evaluation of left lower quadrant abdominal pain. His , Mila, accompanied the pt and contributed to the history. He reports that on 03/29/17, he started to have lower back pain which he states was initially similar to is chronic back pain. On Thursday, 04/01, he started to have chills in addition to his back pain which had moved to his left lower quadrant. He was unable to get an appointment with his PCP, Dr. Dykes , but was able to be seen by Dr. Blackwell in the clinic. He was noted to be febrile in clinic with a temperature of 100.8. Exam revealed severe left lower quadrant pain with palpation, suspicious for diverticulitis. He admits to a history of diverticular disease with an episode of diverticulitis in 2012 which presented with similar symptoms. While in the clinic, labs and blood cultures were obtained and revealed WBC 9.3 with 92% neutrophils and 2% bands. He was also noted to have hypokalemia with potassium of 3.2 and UA was unremarkable. Treatment with Levaquin and KCl were initiated and he was discharged home. On the morning of admission, blood cultures grew E. Coli. Mr. Portillo was contacted and directed to the ED. Upon arrival to the ED, he was hypotensive with a blood pressure of 86/53 and tachycardic with heart rate of 98. Labs were obtained and revealed WBC of 8.2 with 85% neutrophils and 5% bands. BMP was unremarkable with resolution of previous hypokalemia noted in clinic on 04/01. CT abdomen/pelvis with contrast was obtained and revealed distal descending colonic diverticulitis without evidence of perforation or abscess. CXR was also obtained and showed stable appearance of chest without acute cardiopulmonary disease. Additional blood cultures were obtained in the ED. While in the ED, he received vancomycin for additional antimicrobial coverage as well as 1 liter of normal saline and 1 liter of lactated ringers. His hypotension improved with the fluid resuscitation. He admired to recent chills and fever as well as constipation. He recently started doing the keto-diet as he was concerned about being pre-diabetic with his recent A1c at 6.1. Since changing his diet, he has become more constipated as he does not eat much fiber, fruits or vegetables. His last bowel movement was on 03/30. He denied any blood in his stools and no dark, tarry stools. The patient continued to be hypotensive and was subsequently transferred to ICU early am on 04/03/17. After transfer, blood pressure improved without a change in treatment plan. He continue to improve. He was ambulating in the unit and was therefore felt to be stable to move back to the telemetry floor. This morning the patient has been ambulating in the halls multiple times. He is wishing to be discharged to home. He states he feels much better. His vital signs are stable. He denies any shortness of breath, chest discomfort, lightheadedness dizziness, nausea or vomiting. He has a very mild left lower quadrant pain. He also states last night he had a pain in his right groin. That seems to have gotten much better. It is no worse with ambulating in the halls. He is tolerating the diet. He has no fevers and his lab is stable. Objective Vital signs: Temperature 97.9 F 04/04/17 07:47 Pulse Rate 71 04/04/17 07:50 Respiratory Rate 18 04/04/17 04:00 Blood Pressure 133/87 04/04/17 07:50 Pulse Oximetry 94 04/04/17 07:50 Height/Weight/BMI: Height 1.75 m Weight 78.3 kg Body Mass Index 25.9 Comments: Gen.: The patient is alert and oriented. no acute distress. Ambulating in the sy. Skin: warm and dry. HEENT: NC/AT PERRL. EOMI. Sclera, lids and conjunctiva wnl. MMM. OP clear. Neck: supple. No JVP. Carotids 2+ and upstroke without bruits. Lungs: clear without rales, rhonchi or wheezes. CV: heart is regular. No murmur, Rub or gallop. Abdomen: soft, mild tenderness in the lower quadrant, no rebound regarding. Nondistended, positive bowel sounds MS: no lower extremity edema. Good distal pulses Neuro: No focal deficits. Results - Labs CBC & Chem 7: 04/04/17 04:15 04/04/17 04:15 Assessment and Plan (1) Bacteremia Current visit: Yes Status: Acute Blood culture obtained on 04/01/17 was positive for E. coli. (2) Diverticulitis Current visit: Yes Status: Acute (3) Sepsis Current visit: Yes Status: Acute present on admission, secondary to diverticulitis, as indicated by tachycardia ( HR 98) and hypotension (BP 86/53) with MAP of 64. Assessment and Plan: 04/03/2017 Assessment Severe sepsis with hypotension, fever and Escherichia coli bacteremia. Lactate was normal 3 Bacteremia with Escherichia coli Diverticulitis Cough-started yesterday, no URI symptoms, possibly secondary to early pulmonary edema. Lungs are clear on exam. Hypertension history-the patient lost weight and had been off of blood pressure medication with normal blood pressure for the past 2 months Hypercholesterolemia, chronic. Chronic back pain with implanted nerve stimulator in the left back. Tender on the day of admission but improved on 04/03/2017 GERD, chronic. Diverticulosis with history of diverticulitis-2012. BPH, chronic. 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 Seasonal rhinitis, chronic. Plan Re: Escherichia coli bacteremia and diverticulitis, continue on IV Levaquin. We'll discontinue IV fluids, check orthostatics, monitor blood pressure closely , possible transfer to the floor later today. Regarding cough, we'll see if this improves off of IV fluids. If cough is not improving we'll check a chest x-ray. Regarding constipation, continue Senokot twice a day Increase activity-ambulate in the halls with assist as tolerated Advance diet as tolerated Lovenox and SCDs for DVT prophylaxis 04/04/2017 1. Bacteremia-E. Coli -On levaquin IV -Will change to PO to complete the course. 2. Diverticulitis -Improved symptoms -Continue antibiotics 3. Sepsis -resolved. 4. HTN -On no antihypertensives at this time due to weight loss. 5. GERD -PPI 6. Chronic back pain -Nerve stimulator Plan: home today with oral levaquin to finish up course. Hospital Course Summary Disclaimer: The visit summary below is not to be considered part of the above Progress Note. Hospital Course: 04/02/17 14:43 Assessment Sepsis and bacteria secondary to diverticulitis, acute. Hypertension, chronic. Hypercholesterolemia, chronic. Chronic back pain. GERD, chronic. Diverticulosis with history of diverticulitis-2012. BPH, chronic. 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 Seasonal rhinitis, chronic. Plan-04/02/17 (Admission) Admit to inpatient status under the care of Dr. Rangel. Patient was started on Levaquin as outpatient on 04/01/17 for suspected diverticulitis. Will continue Levaquin 750mg IV daily for antimicrobial coverage of suspected GI pathogens. Patient was given Vancomycin x 1 dose in ED for additional empiric coverage, which will not be continued at this time. Additional blood cultures were obtained in ED-awaiting results. Initial blood culture from 04/01 obtained in clinic revealed E. coli. Patient has a history of diverticulitis in 2012 and 2014. May consider surgical consult for further evaluation. Patient has a history of hypertension and was found to be hypotensive in ED with blood pressure 86/53. Improvement with fluid resuscitation. Continue to monitor blood pressure closely. Continue home diltiazem in AM with parameters. Monitor cardiac function closely on telemetry. Continue NS with KCl at 125cc/ hr for hydration and potassium supplementation given recent hypokalemia noted in PCP office (K 3.2 on 04/01/17). Will monitor electrolytes and renal function with repeat BMP in AM. Will recheck CBC in AM to monitor blood counts. lactate on admission was 1.2. Will recheck at 1800. If elevated, recommend recheck in AM. Continue home [place] and Robaxin for chronic back pain. Will provide Morphine as needed for additional pain control as well as Zofran for nausea/vomiting. Full liquid diet as tolerated. Bowel motivation with Senna plus. Prior medical records, nursing notes and home medications were reviewed. Tylenol as needed for pain and fever. Treatment plan discussed with Dr. Rangel and nursing. 04/02/2017-I reviewed this chart, the patient history, and the [employer] ICU's/PA's documented findings as above. We discussed and formulated the assessment and plan as above with the additions below.-Dr. Rangel The patient states that he starting to feel better. He continues to have left lower quadrant abdominal pain, but states that is improving. He states that his symptoms started 5 days ago initially with low back pain and "just not feeling well". He denies any chest pain, shortness of breath or cough. Appetite is decreased. He states that he started on a new diet and has been constipated off and on since that time, occasionally requiring manual disimpaction including last week. He states that he has lost 20 pounds and stopped taking his diltiazem. He states he did monitor his blood pressure and it was usually in the 120s over 70s. He states yesterday when he didn't feel well he thought it might be because of high blood pressure and so he restarted his diltiazem yesterday after being off of it for several weeks. Last night and this morning the patient states he was feeling lightheaded and weak as well as having feverishness and abdominal pain. He states after receiving IV fluids he no longer feels lightheaded. He does request something to eat and drink and states he is hungry. On exam he is alert and oriented and in no acute distress. Chest is clear to auscultation. Cardiac vascular reveals a regular rate and rhythm. Abdomen is soft and mildly tender throughout but more so in the left lower quadrant. Bowel sounds are present. He states he is passing some flatus. Extremities are free of edema. Skin is warm and dry and without rashes. Back exam reveals a nerve stimulator in the left low back. There is no surrounding erythema or edema but the patient states it is a little tender to palpation. I did review the CT and agree with radiology report showing distal descending colonic diverticulitis. No evidence of perforation or abscess at this time. Impression and plan Regarding diverticulitis with Escherichia coli bacteremia, agree with IV Levaquin. He did take oral Levaquin this morning. Blood cultures were repeated today and will await results. Regarding hypotension and sepsis, continue IV fluids. Regarding history of hypertension, the patient states he stops taking his diltiazem several weeks ago and only restarted taking it yesterday. He states he quit taking it when he lost 20 pounds. We'll monitor off of diltiazem at this time. Tender Nerve stimulator in back-monitor Repeat lab tomorrow Regarding constipation, recommend treatment and avoidance of constipation to help with his diverticulosis.
--- NOTE | 2017-04-04 14:29 | Discharge Summary ---
Discharge Information Date of admission: 04/02/17 11:26 Anticipated date of discharge: 04/04/17 Attending Physician: Lacy Rangel MD Primary care physician: Paxton Dykes MD Consults: None - Discharge Diagnosis (1) Bacteremia Status: Acute (2) Diverticulitis Status: Acute (3) Sepsis Status: Acute - Laboratory Labs: 04/04/17 04:15 04/04/17 04:15 - Radiology Radiology: CT of abdomen 04/02/17 Impression: Distal descending colonic diverticulitis. No evidence of perforation or abscess at this time. History of Present Illness HPI: Kaden Portillo (Mike) is a very pleasant 61-year-old male who presented to [facility] – [place], [place] emergency department at the suggestion of his PCP, Dr. Dykes, for evaluation of left lower quadrant abdominal pain. His , Mila, is present on exam and contributes to the history. He reports that on 03/29/17, he started to have lower back pain which he states was initially similar to is chronic back pain. On Thursday, 04/01, he started to have chills in addition to his back pain which had moved to his left lower quadrant. He was unable to get an appointment with his PCP, Dr. Dykes, but was able to be seen by Dr. Blackwell in the clinic. He was noted to be febrile in clinic with a temperature of 100.8. Exam revealed severe left lower quadrant pain with palpation, suspicious for diverticulitis. He admits to a history of diverticular disease with an episode of diverticulitis in 2012 which presented with similar symptoms. While in the clinic, labs and blood cultures were obtained and revealed WBC 9.3 with 92% neutrophils and 2% bands. He was also noted to have hypokalemia with potassium of 3.2 and UA was unremarkable. Treatment with Levaquin and KCl were initiated and he was discharged home. This morning, the hospitalist service was contacted regarding positive blood cultures on Mr. Portillo , revealing E. coli. Mr. Portillo was then contacted and directed to the emergency room for further evaluation and admission. Upon arrival to the ED, he was hypotensive with a blood pressure of 86/53 and tachycardic with heart rate of 98. Labs were obtained and revealed WBC of 8.2 with 85% neutrophils and 5% bands. BMP was unremarkable with resolution of previous hypokalemia noted in clinic on 04/01. CT abdomen/pelvis with contrast was obtained and revealed distal descending colonic diverticulitis without evidence of perforation or abscess. CXR was also obtained and showed stable appearance of chest without acute cardiopulmonary disease. Additional blood cultures were obtained in the ED. Mr. Portillo admits to taking his levaquin this morning around 0700 in addition to his home medications. While in the ED, he received vancomycin for additional antimicrobial coverage as well as 1 liter of normal saline and 1 liter of lactated ringers. His hypotension improved with the fluid resuscitation. In light of his acute diverticulitis with bacteremia and sepsis as indicated by his tachycardia and hypotension with MAP of 64, Dr. Rangel was contacted and he was admitted into inpatient status for further evaluation, close monitoring for deterioration, IV hydration and IV antibiotics. His length of stay is expected to exceed 2 over nights. On exam, he is seen while resting in bed, on his right side, with his at the bedside. He denies any chest pain, shortness of breath, nausea, vomiting or dysuria. He admits to recent chills and fever as well as constipation. He recently started doing the keto-diet as he was concerned about being prediabetic with his recent A1c at 6.1. Since changing his diet, he has become more constipated as he does not eat much fiber, fruits or vegetables. His last bowel movement was on 03/30. He denies any blood in his stools and no dark, tarry stools. 04/04/17 14:32 Due to hypotension the patient was transferred to the ICU on the early childhood specialist hours of 04/03/2017. His hypotension resolved without any treatment. Apparently the patient had taken a Cardizem at home because he didn't feel well and thought it might be blood pressure related. I suspect once the Cardizem wore off his blood pressures rebounded and had no further problem. He was walking in the unit and was felt to be stable to move back to the telemetry floor. Hospital Course This is a general summary of the patient's hospital course. For more details refer to the complete medical record. Hospital course: 04/02/17 14:43 Assessment Sepsis and bacteria secondary to diverticulitis, acute. Hypertension, chronic. Hypercholesterolemia, chronic. Chronic back pain. GERD, chronic. Diverticulosis with history of diverticulitis-2012. BPH, chronic. 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 Seasonal rhinitis, chronic. Plan-04/02/17 (Admission) Admit to inpatient status under the care of Dr. Rangel. Patient was started on Levaquin as outpatient on 04/01/17 for suspected diverticulitis. Will continue Levaquin 750mg IV daily for antimicrobial coverage of suspected GI pathogens. Patient was given Vancomycin x 1 dose in ED for additional empiric coverage, which will not be continued at this time. Additional blood cultures were obtained in ED-awaiting results. Initial blood culture from 04/01 obtained in clinic revealed E. coli. Patient has a history of diverticulitis in 2012 and 2014. May consider surgical consult for further evaluation. Patient has a history of hypertension and was found to be hypotensive in ED with blood pressure 86/53. Improvement with fluid resuscitation. Continue to monitor blood pressure closely. Continue home diltiazem in AM with parameters. Monitor cardiac function closely on telemetry. Continue NS with KCl at 125cc/ hr for hydration and potassium supplementation given recent hypokalemia noted in PCP office (K 3.2 on 04/01/17). Will monitor electrolytes and renal function with repeat BMP in AM. Will recheck CBC in AM to monitor blood counts. lactate on admission was 1.2. Will recheck at 1800. If elevated, recommend recheck in AM. Continue home Beulah and Robaxin for chronic back pain. Will provide Morphine as needed for additional pain control as well as Zofran for nausea/vomiting. Full liquid diet as tolerated. Bowel motivation with Senna plus. Prior medical records, nursing notes and home medications were reviewed. Tylenol as needed for pain and fever. Treatment plan discussed with Dr. Rangel and nursing. 04/02/2017-I reviewed this chart, the patient history, and the ASSISTED LIVING ASSOCIATE's/PA's documented findings as above. We discussed and formulated the assessment and plan as above with the additions below.-Dr. Rangel The patient states that he starting to feel better. He continues to have left lower quadrant abdominal pain, but states that is improving. He states that his symptoms started 5 days ago initially with low back pain and "just not feeling well". He denies any chest pain, shortness of breath or cough. Appetite is decreased. He states that he started on a new diet and has been constipated off and on since that time, occasionally requiring manual disimpaction including last week. He states that he has lost 20 pounds and stopped taking his diltiazem. He states he did monitor his blood pressure and it was usually in the 120s over 70s. He states yesterday when he didn't feel well he thought it might be because of high blood pressure and so he restarted his diltiazem yesterday after being off of it for several weeks. Last night and this morning the patient states he was feeling lightheaded and weak as well as having feverishness and abdominal pain. He states after receiving IV fluids he no longer feels lightheaded. He does request something to eat and drink and states he is hungry. On exam he is alert and oriented and in no acute distress. Chest is clear to auscultation. Cardiac vascular reveals a regular rate and rhythm. Abdomen is soft and mildly tender throughout but more so in the left lower quadrant. Bowel sounds are present. He states he is passing some flatus. Extremities are free of edema. Skin is warm and dry and without rashes. Back exam reveals a nerve stimulator in the left low back. There is no surrounding erythema or edema but the patient states it is a little tender to palpation. I did review the CT and agree with radiology report showing distal descending colonic diverticulitis. No evidence of perforation or abscess at this time. Impression and plan Regarding diverticulitis with Escherichia coli bacteremia, agree with IV Levaquin. He did take oral Levaquin this morning. Blood cultures were repeated today and will await results. Regarding hypotension and sepsis, continue IV fluids. Regarding history of hypertension, the patient states he stops taking his diltiazem several weeks ago and only restarted taking it yesterday. He states he quit taking it when he lost 20 pounds. We'll monitor off of diltiazem at this time. Tender Nerve stimulator in back-monitor Repeat lab tomorrow Regarding constipation, recommend treatment and avoidance of constipation to help with his diverticulosis. 04/03/17 The patient was transferred to intensive care because of hypotension. After transfer, blood pressure improved without a change in treatment plan. The patient states he is feeling a lot better today. He states he no longer has a headache. His abdominal pain is better. His feverishness is improved. He is not as lightheaded. He did urinate a lot yesterday but not as much today. He does have a nonproductive cough. He denies chest pain. He denies any rhinorrhea , sore throat or other symptoms of an upper respiratory infection. He had a diarrheal stool last night. He is tolerating a full liquid diet without difficulties. He states he was off of his blood pressure medicine for 2 months after losing weight on a diet plan. He restarted his blood pressure medicine yesterday morning because he was not feeling well. 04/04/17 Today he was ambulating in the hallways multiple times. He was feeling much better and wanted to be discharged to home. His bowels were working. His abdominal pain was markedly improved. He had no lightheadedness, dizziness. He has been afebrile. His labs are stable. Heart rate is normal. Blood pressures are reasonable. He denies shortness of breath, chest pain, palpitations. He is tolerating the diet. He did complain of a pain in his right groin last evening but it was better today and did not seem to worsen with ambulation in the halls. He was felt to be stable to discharged to home on oral antibiotics to complete the antibiotic course or 21 days. 04/04/17 14:36 Time spent with patient: less than 15 minutes Discharge Plan - Med Rec/Dispo Julia Instructions: Bacteremia (DC) Additional Instructions: Follow up with PCP in one week. Prescriptions: New Acetaminophen [Tylenol] 500 mg PO Q5H PRN tablet PRN Reason: Discomfort Levofloxacin [Levaquin] 750 mg PO DAILY #20 tab Continue Simvastatin [Zocor] 20 mg PO DAILY #0 Finasteride [Proscar] 5 mg PO DAILY Tamsulosin HCl [Flomax] 0.4 mg PO DAILY #0 Fluticasone Nasal [place] [Flonase] 1 spray EA NOSTRIL DAILY PRN PRN Reason: Prn Orders Hydrocodone/APAP 7.5/325 [Beulah 7.5/325] 1 tab PO QID PRN PRN Reason: Pain Methocarbamol [Robaxin] 500 mg PO BID PRN PRN Reason: Prn Orders Discontinued dilTIAZem HCl [Diltiazem 24Hr Cd] 120 mg PO DAILY levoFLOXacin [Levaquin] 500 mg PO ACB - Disposition 01 Discharged Home,Parent Care
--- NOTE | 2017-04-04 14:41 | Discharge Instructions ---
Discharge Plan - Med Rec/Dispo Julia Instructions: Bacteremia (DC) Additional Instructions: Follow up with PCP in one week. Prescriptions: New Acetaminophen [Tylenol] 500 mg PO Q5H PRN tablet PRN Reason: Discomfort Levofloxacin [Levaquin] 750 mg PO DAILY #20 tab Continue Simvastatin [Zocor] 20 mg PO DAILY #0 Finasteride [Proscar] 5 mg PO DAILY Tamsulosin HCl [Flomax] 0.4 mg PO DAILY #0 Fluticasone Nasal [place] [Flonase] 1 spray EA NOSTRIL DAILY PRN PRN Reason: Prn Orders Hydrocodone/APAP 7.5/325 [[place] 7.5/325] 1 tab PO QID PRN PRN Reason: Pain Methocarbamol [Robaxin] 500 mg PO BID PRN PRN Reason: Prn Orders Discontinued dilTIAZem HCl [Diltiazem 24Hr Cd] 120 mg PO DAILY levoFLOXacin [Levaquin] 500 mg PO ACB - Disposition 01 Discharged Home,Parent Care
== END 2017-04-04 15:10 | disposition home or self-care (01) | DRG 872 ==
LOC: ED 09:41 → SRG 11:26 → CCU 23:59 → MED 04-03 14:59
PROVIDERS: ADMIT Internal Medicine; ATTEND Internal Medicine